=== PATIENT | male | born 1980 | race Two or more races ===

== ENCOUNTER 2019-08-22 09:32 | Outpatient (CLI) | payer OTHER | END 2019-08-22 15:00 | disposition home or self-care (01) | LOC: MRI 09:32 | DX: M79.605 Pain in left leg (principal) | CPT/HCPCS: 73721 ==

== ENCOUNTER 2021-11-12 04:34 | Emergency (ER) | payer OTHER ==
[~2021-11-12] VITALS: Ht 167.6 cm; Wt 90.7 kg
[2021-11-12] MEDS ORDERED: COZAAR25 MG (04:55)
[2021-11-12] MEDS ORDERED: KETO10TA2 PO (10:49)
[2021-11-12] MEDS ORDERED: AMOX-CLAV 875-1 EACH PO (10:49)
== END 2021-11-12 13:43 | disposition home or self-care (01) ==
LOC: ER 04:34
DX: G89.18 Other acute postprocedural pain (principal); R51.9 Headache, unspecified; K08.89 Other specified disorders of teeth and supporting structures; Z03.818 Encounter for observation for suspected exposure to other biological agents ruled out

== ENCOUNTER 2024-07-19 10:05 | Emergency (ER) | payer OTHER ==
[~2024-07-19] VITALS: Ht 167.6 cm; Wt 93.0 kg
[~2024-07-19 10:05] MED LIST: AMOX-CLAV 875-1 EACH PO; COZAAR25 MG; KETO10TA2 PO
== END 2024-07-19 10:55 | disposition home or self-care (01) ==
LOC: ER 10:07
DX: H10.11 Acute atopic conjunctivitis, right eye (principal)